=== PATIENT | male | born 1995 | race African-American/Black ===

== ENCOUNTER 2023-03-07 18:10 | Emergency (ER) | payer SELFPAY ==
[2023-03-07 18:35] LABS: Bilirubin Neg (Negative); Blood, Urine Negative (Negative); Clarity Slightly Cloudy (Clear); Glucose, Urine (Dipstick) Normal (Negative); Ketone, Urine Negative (Negative); Leukocyte Negative (Negative); Nitrite Negative (Negative); Protein, Urine (Dipstick) Negative (Neg-Trace); Specific Gravity, Urine 1.015 (1.005-1.030); Urobilinogen Normal mg/dL (Less than 2)
== END 2023-03-07 19:37 | disposition home or self-care (01) ==
LOC: CSHERS 18:10
DX: N30.10 Interstitial cystitis (chronic) without hematuria (principal); R30.0 Dysuria; N32.89 Other specified disorders of bladder
CPT/HCPCS: 81003; 87086; 99283

== ENCOUNTER 2023-08-16 11:23 | Emergency (ER) | payer SELFPAY ==
[2023-08-16 13:03] LABS: Bilirubin Neg (Negative); Blood, Urine Negative (Negative); Clarity Clear (Clear); Glucose, Urine (Dipstick) Normal (Negative); Ketone, Urine 5 mg/dL (Negative); Leukocyte 25 (Negative); Nitrite Negative (Negative); Protein, Urine (Dipstick) 30 mg/dl (Neg-Trace); Specific Gravity, Urine 1.025 (1.005-1.030)
[2023-08-16 13:26] LABS: Bacteria/HPF None Seen HPF (None Seen); CAUTI Indications for Culture Pelvic or flank pain; Mucous/LPF 1+ LPF (<2+); RBC/HPF 0-3 HPF (0-3); Squamous Epithelial 0-3 HPF (0-3); Urine Culture Reflex No No; WBC/HPF 0-3 HPF (0-3)
[2023-08-16 20:45] LABS: Chlam.trachomatis by PCR,Urine Not Detected (NotDetected); GC N.gonorrhoeae PCR,UrineVOID Not Detected (NotDetected)
== END 2023-08-16 14:07 | disposition home or self-care (01) ==
LOC: CSHERS 11:23
DX: K62.89 Other specified diseases of anus and rectum (principal)
CPT/HCPCS: 81001; 87491; 87591; 99283